=== PATIENT | male | born 1945 | race Caucasian/White ===

== ENCOUNTER 2024-05-22 13:12 | Outpatient (REF) | payer MEDICARE, OTHER, SELFPAY ==
[2024-05-24 02:33] LABS: Lyme Abs Screen <0.90 index
[2024-05-28 19:33] LABS: A. Phagocytophilum Ab IgG <1:64 (<1:64); A. Phagocytophilum Ab IgM <1:20 (<1:20); E. Chaffeensis Ab IgG <1:64 (<1:64); E. Chaffeensis Ab IgM <1:20 (<1:20)
== END 2024-05-22 13:13 | disposition home or self-care (01) ==
LOC: HO.MANLNP 13:12
PROVIDERS: Visit Provider Physician Assistant
DX: T14.8XXA Other injury of unspecified body region, initial encounter (principal); W57.XXXA Bitten or stung by nonvenomous insect and other nonvenomous arthropods, initial encounter
CPT/HCPCS: 36415; 86617; 86618; 86666